=== PATIENT | female | born 1960 | race Caucasian/White ===

== ENCOUNTER → 2017-02-19 | Outpatient (CLI) | payer OTHER ==
[~2017-02-19] MED LIST: ACIPHEX 20 MG T20 M1 PO; ACIPHEX 20 MG T20 MG PO; ESTRADIOL 1 MG T1 M1 PO; ESTRADIOL 1 MG T1 M1 TP; METRONIDAZOLE45 G1 TP; QVAR HFA 880 MCG/UN1 INH; QVAR8.7 G1 IH; VENTOLIN HFA 1818 GM INH
== END ==
LOC: RAD 08:27
DX: Z12.31 Encounter for screening mammogram for malignant neoplasm of breast (principal)

== ENCOUNTER → 2018-03-10 | Outpatient (CLI) | payer OTHER | LOC: RAD 15:25 | DX: Z12.31 Encounter for screening mammogram for malignant neoplasm of breast (principal) ==

== ENCOUNTER → 2018-03-17 | Outpatient (CLI) | payer OTHER | LOC: ULTRA 01:26 | DX: N60.02 Solitary cyst of left breast (principal); R92.8 Other abnormal and inconclusive findings on diagnostic imaging of breast ==